=== PATIENT | female | born 1975 | race Caucasian/White ===

== ENCOUNTER 2018-06-28 23:54 | Emergency (ER) | payer SELFPAY ==
[2018-06-28] MEDS ORDERED: Bupivacaine 0.5% 10 ML SDV INFILT ONE (23:55)
[2018-06-29] MEDS ORDERED: Diphtheria,Pertussis(Acell),Tetanus Vaccine 0.5 ML SDV IM ONE (01:03)
[2018-06-29] MEDS ORDERED: Amoxicillin/Clavulanate K 875-125 MG Tab PO ONE (01:06)
--- NOTE | 2018-06-29 01:08 | EDM.PDOC ---
ED HPI GENERAL MEDICAL PROBLEM - General Chief Complaint: Bite:Animal, Insect Stated Complaint: BIT BY THE DOG Time Seen by Provider: 06/28/18 23:54 Source of Information: Reports: Patient, Family History Limitations: Reports: No Limitations - History of Present Illness INITIAL COMMENTS - FREE TEXT/NARRATIVE: 43 y.o.w.brigida was bit by her own dog- who had all his shuts- by accident, into her left upper lip. Minimal bleed initially. A lip/skin flap was till attached to the inner lip. TD immunization not clear. No other acute med. issue, denies . BP 129/70 pulse 101 RR 18 Pulse ox 100% on RA Temp 36.8 Onset Date: 07/09/18 Onset Time: 23:00 Duration: Minutes: Location: Reports: Face (left upper lip) Quality: Reports: Dull Severity: Mild Improves with: Reports: Rest Worsens with: Reports: Movement Context: Reports: Trauma (dog bite) Associated Symptoms: Reports: No Other Symptoms upper lip Pain Score (Numeric/FACES): 3 - Related Data Allergies Allergy/AdvReac Type Severity Reaction Status Date / Time No Known Allergies Allergy Verified 06/29/18 00:41 Home Meds: Home Meds Amoxicillin/Potassium Clav [Augmentin 875-125 Tablet] 1 each PO BID #20 tablet 06/29/18 [Rx] Escitalopram Oxalate [Lexapro] 5 mg PO DAILY 06/29/18 [History] Past Medical History - Past Health History Medical/Surgical History: Denies Medical/Surgical History Social & Family History - Family History Family Medical History: Noncontributory - Tobacco Use Smoking Status *Q: Former Smoker Used Tobacco, but Quit: Yes Month/Year Tobacco Last Used: 124 - Caffeine Use Caffeine Use: Reports: Coffee - Recreational Drug Use Recreational Drug Use: No ED ROS GENERAL - Review of Systems Review Of Systems: See Below Constitutional: Reports: No Symptoms HEENT: Reports: No Symptoms Respiratory: Reports: No Symptoms Cardiovascular: Reports: No Symptoms Endocrine: Reports: No Symptoms GI/Abdominal: Reports: No Symptoms : Reports: No Symptoms Musculoskeletal: Reports: No Symptoms Skin: Reports: Wound (left upper lip) Neurological: Reports: No Symptoms Psychiatric: Reports: No Symptoms Hematologic/Lymphatic: Reports: No Symptoms Immunologic: Reports: No Symptoms ED EXAM, ANIMAL BITE - Physical Exam Exam: See Below Exam Limited By: No Limitations General Appearance: Alert, WD/WN, Mild Distress Eye Exam: Bilateral Eye: Normal Inspection Ears: Normal External Exam, Normal Canal, Hearing Grossly Normal Nose: Normal Inspection, Normal Mucosa, No Blood Throat/Mouth: Normal Teeth, Normal Gums, Normal Voice, No Airway Compromise, Other (Laceration/fla) Head: Atraumatic, Normocephalic Neck: Normal Inspection, Supple, Non-Tender Respiratory/Chest: No Respiratory Distress, Lungs Clear, Normal Breath Sounds, No Accessory Muscle Use, Chest Non-Tender Cardiovascular: Normal Peripheral Pulses, Regular Rate, Rhythm, No Edema, No Gallop, No JVD, No Murmur, No Rub Peripheral Pulses: 2+: Brachial (R) GI/Abdominal: Normal Bowel Sounds, Soft, Non-Tender, No Organomegaly, No Abnormal Bruit, No Mass (Female) Exam: Deferred Rectal (Female) Exam: Deferred Back Exam: Normal Inspection, Full Range of Motion Extremities: Normal Inspection, Normal Range of Motion, Non-Tender, No Pedal Edema Neurological: Alert, Oriented, CN II-XII Intact, Normal Cognition, Normal Gait Psychiatric: Normal Affect, Normal Mood Skin Exam: Normal Color, Warm/Dry Lymphadenopathy: Bilateral: No Adenopathy Lymphatic: No Adenopathy ED ANIMAL BITE PROCEDURES - Laceration/Wound Repair Left Upper Mouth Lac/Wound Length In cm: 1.2 (left upper lip flap) Appearance: Subcutaneous, Irregular, Clean Distal NVT: Neuro & Vascular Intact, No Tendon Injury Anesthetic Type: Local Local Anesthesia - Bupivicaine (Marcaine): 0.5% Plain Local Anesthetic Volume: 2cc Saline Irrigation (cc's): 2 Exploration/Debridement/Repair: Wound Explored, In a Bloodless Field, Explored to Base Suture Size: other (5/0 absorbable sutures) # of Sutures: 6 Suture Type: Interrupted Tetanus Status Addressed: Yes (given today) Complications: No Course - Vital Signs Text/Narrative:: 43 y.o.w.f was bit by her own dog- who had all his shuts- by accident, into her left upper lip. Minimal bleed initially. A lip/skin flap was till attached to the inner lip. TD immunization not clear. No other acute med. issue, denies . BP 129/70 pulse 101 RR 18 Pulse ox 100% on RA Temp 36.8 PE: WN[facility] WF with a skin flap Lac [facility] left upper [facility] Procedure, please see above Impression: Dog bite, Lac left upper lip Tx: Wound care/repair.Gema Reexam: Improved Plan: D/C with instructions Last Recorded V/S: Last Vital Signs Temp 36.7 C 06/29/18 01:22 Pulse 72 06/29/18 01:22 Resp 18 06/29/18 01:22 BP 116/77 06/29/18 01:22 Pulse Ox 98 06/29/18 01:22 - Orders/Labs/Meds Orders: Active Orders 24 hr Category Date Time Status Vaccines to be Administered [RC] PER UNIT ROUTINE Care 06/29/18 01:04 Active Meds: Medications Discontinued Medications Generic Name Dose Route Start Last Admin Trade Name Kirk PRN Reason Stop Dose Admin Amoxicillin/Clavulanate Potassium 1 tab 06/29/18 01:06 06/29/18 01:10 Augmentin 875 Mg/125 Mg PO 06/29/18 01:07 1 tab ONETIME ONE Administration Diphtheria/Tetanus/Acell Pertussis 0.5 ml 06/29/18 01:03 06/29/18 01:10 Adacel IM 06/29/18 01:04 0.5 ml .ONCE ONE Administration Departure - Departure Time of Disposition: 01:08 Disposition: Home, Self-Care 01 Condition: Good Clinical Impression: Laceration, Dog bite - Discharge Information Prescriptions: Amoxicillin/Potassium Clav [Augmentin 875-125 Tablet] 1 each PO BID #20 tablet Instructions: Animal Bite, [id number], Laceration Care, Adult, [id number] Referrals: PCP,None [Primary Care Provider] - Forms: ED Department Discharge Additional Instructions: Please apply neosporine to wound twice daily, please f/u with your PMD in 2 days for wound check, please come back i f your symptoms get worse acutely - My Orders Last 24 Hours: My Active Orders 06/29/18 01:04 Vaccines to be Administered [RC] PER UNIT ROUTINE - Assessment/Plan Last 24 Hours: My Active Orders 06/29/18 01:04 Vaccines to be Administered [RC] PER UNIT ROUTINE
== END 2018-06-29 01:22 | disposition home or self-care (01) ==
LOC: FB.ED 23:54
DX: S01.551A Open bite of lip, initial encounter (principal); Z87.891 Personal history of nicotine dependence; Z23 Encounter for immunization; W54.0XXA Bitten by dog, initial encounter
CPT/HCPCS: 12011; 90471; 90472; 90715; 99283; A9270; J3490